=== PATIENT | female | born 1950 | race Native Hawaiian/Other Pacific Islander ===

== ENCOUNTER 2016-11-14 14:11 | Outpatient (CLI) | payer OTHER ==
[~2016-11-14 14:11] MED LIST: ALPR0.5T24 PO; AMITRIPTYLIN50 MG PO; DEXILANT60 M1 PO; HYDR10TA47 PO; METO50TA27 PO; MS CONTIN60 MG PO; PLAVIX75 MG PO; POTA20TA4 PO; PROM25TA52 PO; SIMV20TA2 PO; SUCR1TAB35 PO; TIZA4TAB5 PO; ZOLP10TA2 PO
== END 2016-11-14 21:44 | disposition home or self-care (01) ==
LOC: RAD 14:11
DX: J40 Bronchitis, not specified as acute or chronic (principal)

== ENCOUNTER 2017-01-12 08:19 | Outpatient (CLI) | payer OTHER ==
[2017-01-12 08:39] LABS: PLATELET COUNT 241 K/uL (152-353)
[2017-01-12 09:40] LABS: POTASSIUM 3.5 mmol/L (3.6-5.2); SODIUM 139 mmol/L (136-145)
== END 2017-01-12 19:43 | disposition home or self-care (01) ==
LOC: LABW 08:19
PROVIDERS: Family Medicine
DX: G89.4 Chronic pain syndrome (principal); G47.09 Other insomnia; F41.8 Other specified anxiety disorders; R73.9 Hyperglycemia, unspecified; K21.9 Gastro-esophageal reflux disease without esophagitis; I10 Essential (primary) hypertension; E55.9 Vitamin D deficiency, unspecified; R82.99 Other abnormal findings in urine
CPT/HCPCS: 36415; 80053; 80061; 81000; 82043; 82306; 82570; 83735; 84439; 84443; 84550; 85027; 87086; 87088

== ENCOUNTER 2017-03-02 08:44 | Day surgery (SDC) | payer OTHER | END 2017-03-02 12:40 | disposition home or self-care (01) | LOC: OR 08:44 | PROC: 08RJ3JZ Replacement of Right Lens with Synthetic Substitute, Percutaneous Approach (ICD-10-PCS; principal; 2017-03-02) | PROC: 08923ZZ Drainage of Right Anterior Chamber, Percutaneous Approach (ICD-10-PCS; 2017-03-02) | DX: H25.811 Combined forms of age-related cataract, right eye (principal); H52.221 Regular astigmatism, right eye | CPT/HCPCS: 66984; 66999; J3010; V2632 ==

== ENCOUNTER 2017-04-16 17:52 | Outpatient (CLI) | payer OTHER | END 2017-04-16 19:43 | disposition home or self-care (01) | LOC: LAB 17:52 | DX: N39.0 Urinary tract infection, site not specified (principal) | CPT/HCPCS: 81000; 87086; 87088 ==

== ENCOUNTER 2017-06-03 12:38 | Outpatient (CLI) | payer OTHER | END 2017-06-03 19:38 | disposition home or self-care (01) | LOC: MAMMO 12:38 | DX: R22.31 Localized swelling, mass and lump, right upper limb (principal); Z91.89 Other specified personal risk factors, not elsewhere classified; Z80.49 Family history of malignant neoplasm of other genital organs; Z80.3 Family history of malignant neoplasm of breast; Z78.0 Asymptomatic menopausal state | CPT/HCPCS: G0204-TC ==

== ENCOUNTER 2017-06-26 13:04 | Outpatient (CLI) | payer OTHER ==
[2017-06-26 13:52] LABS: PLATELET COUNT 230 K/uL (152-353)
[2017-06-26 14:48] LABS: POTASSIUM 3.6 mmol/L (3.6-5.2); SODIUM 139 mmol/L (136-145)
== END 2017-06-26 19:08 | disposition home or self-care (01) ==
LOC: LABW 13:04
PROVIDERS: Family Medicine
DX: R51 Headache (principal); F41.8 Other specified anxiety disorders; R73.9 Hyperglycemia, unspecified; G89.4 Chronic pain syndrome; I10 Essential (primary) hypertension; Z79.899 Other long term (current) drug therapy; Z51.81 Encounter for therapeutic drug level monitoring
CPT/HCPCS: 36415; 80053; 81000; 83036; 83735; 84439; 84443; 85027

== ENCOUNTER 2017-08-18 15:58 | Outpatient (CLI) | payer OTHER | END 2017-08-18 17:00 | disposition home or self-care (01) | LOC: RAD 15:58 | DX: M54.5 Low back pain (principal) ==

== ENCOUNTER 2017-08-25 09:10 | Outpatient (CLI) | payer OTHER | END 2017-08-25 18:56 | disposition home or self-care (01) | LOC: RAD 09:10 | DX: Z78.0 Asymptomatic menopausal state (principal); M54.5 Low back pain ==

== ENCOUNTER 2017-09-30 15:27 | Outpatient (CLI) | payer OTHER | END 2017-09-30 19:38 | disposition home or self-care (01) | LOC: RAD 15:27 | DX: R07.89 Other chest pain (principal); R07.81 Pleurodynia; M25.512 Pain in left shoulder ==

== ENCOUNTER 2017-11-12 12:12 | Outpatient (CLI) | payer OTHER | END 2017-11-12 22:03 | disposition home or self-care (01) | LOC: RAD 12:12 | DX: M25.511 Pain in right shoulder (principal) ==

== ENCOUNTER 2018-08-18 09:16 | Outpatient (CLI) | payer OTHER | END 2018-08-18 19:17 | disposition home or self-care (01) | LOC: RAD 09:16 → EDP 09:16 → RAD 19:17 | DX: M54.5 Low back pain (principal) ==

== ENCOUNTER 2018-08-31 09:30 | Outpatient (CLI) | payer OTHER | END 2018-08-31 21:20 | disposition home or self-care (01) | LOC: CT 09:30 | DX: M54.5 Low back pain (principal) ==

== ENCOUNTER 2019-06-01 14:32 | Outpatient (CLI) | payer OTHER | END 2019-06-01 22:19 | disposition home or self-care (01) | LOC: RAD 14:32 | DX: M54.5 Low back pain (principal) ==

== ENCOUNTER 2019-08-25 08:53 | Outpatient (CLI) | payer OTHER ==
[~2019-08-25] VITALS: Ht 124.5 cm; Wt 45.4 kg
== END 2019-08-25 23:27 | disposition home or self-care (01) ==
LOC: NM 08:53
DX: R07.89 Other chest pain (principal)
CPT/HCPCS: A9500; J2785

== ENCOUNTER 2019-09-11 08:25 | Outpatient (CLI) | payer OTHER ==
[2019-09-11 09:03] LABS: POTASSIUM 3.8 mmol/L (3.6-5.2)
[2019-09-11 09:51] LABS: PLATELET COUNT 243 K/uL (152-353)
== END 2019-09-11 19:23 | disposition home or self-care (01) ==
LOC: LABW 08:25
PROVIDERS: Family Medicine
DX: Z00.00 Encounter for general adult medical examination without abnormal findings (principal); R53.83 Other fatigue; R00.2 Palpitations; K21.9 Gastro-esophageal reflux disease without esophagitis; F41.8 Other specified anxiety disorders; E55.9 Vitamin D deficiency, unspecified; G89.4 Chronic pain syndrome; K62.5 Hemorrhage of anus and rectum; Z79.899 Other long term (current) drug therapy
CPT/HCPCS: 36415; 80053; 80061; 81000; 82306; 83735; 84439; 84443; 85027

== ENCOUNTER 2019-09-21 15:33 | Outpatient (CLI) | payer OTHER | END 2019-09-21 20:16 | disposition home or self-care (01) | LOC: RAD 15:33 | DX: M25.551 Pain in right hip (principal); N39.0 Urinary tract infection, site not specified ==

== ENCOUNTER 2020-02-09 15:04 | Outpatient (CLI) | payer OTHER | END 2020-02-09 22:03 | disposition home or self-care (01) | LOC: RAD 15:04 | DX: R07.81 Pleurodynia (principal); S29.9XXA Unspecified injury of thorax, initial encounter ==

== ENCOUNTER 2020-04-16 12:56 | Outpatient (CLI) | payer OTHER | END 2020-04-16 22:06 | disposition home or self-care (01) | LOC: CT 12:56 | DX: R91.8 Other nonspecific abnormal finding of lung field (principal); Q76.6 Other congenital malformations of ribs; R07.81 Pleurodynia | CPT/HCPCS: 36415; 82565; 84520; Q9963 ==

== ENCOUNTER 2020-10-04 15:20 | Outpatient (CLI) | payer OTHER | END 2020-10-04 19:07 | disposition home or self-care (01) | LOC: MAMMO 15:20 | PROVIDERS: ATTEND Family Medicine | DX: Z00.00 Encounter for general adult medical examination without abnormal findings (principal); Z12.31 Encounter for screening mammogram for malignant neoplasm of breast ==

== ENCOUNTER 2020-10-29 10:11 | Outpatient (CLI) | payer OTHER | END 2020-10-29 21:52 | disposition home or self-care (01) | LOC: LAB 10:11 | PROVIDERS: ATTEND Family Medicine | DX: Z20.828 Contact with and (suspected) exposure to other viral communicable diseases (principal) | CPT/HCPCS: 87635; G2023; U0003 ==

== ENCOUNTER 2020-11-14 14:08 | Outpatient (CLI) | payer OTHER | END 2020-11-14 19:46 | disposition home or self-care (01) | LOC: RAD 14:08 | PROVIDERS: ATTEND Family Medicine | DX: M54.89 Other dorsalgia (principal) ==

== ENCOUNTER 2020-12-11 16:03 | Outpatient (CLI) | payer OTHER | END 2020-12-11 22:54 | disposition home or self-care (01) | LOC: RAD 16:03 | PROVIDERS: ATTEND Family Medicine | DX: M54.89 Other dorsalgia (principal); M62.830 Muscle spasm of back; G89.4 Chronic pain syndrome ==

== ENCOUNTER 2021-02-15 08:53 | Outpatient (CLI) | payer OTHER ==
[~2021-02-15] VITALS: Ht 167.6 cm; Wt 55.3 kg
== END 2021-02-15 21:17 | disposition home or self-care (01) ==
LOC: INF 08:53
PROVIDERS: ATTEND Internal Medicine Endocrinology, Diabetes & Metabolism
DX: M81.0 Age-related osteoporosis without current pathological fracture (principal)
CPT/HCPCS: 36415; 82310; 96372; J0897

== ENCOUNTER 2021-03-04 16:26 | Emergency (ER) | payer OTHER ==
[~2021-03-04] VITALS: Ht 167.6 cm; Wt 55.3 kg
[2021-03-04 16:32] VITALS: BP 126/64; TEMP 98.5
== END 2021-03-04 18:13 | disposition home or self-care (01) ==
LOC: ED 16:26
DX: U07.1 COVID-19 (principal)
CPT/HCPCS: 87635; 99283; U0003

== ENCOUNTER 2021-08-23 13:04 | Outpatient (CLI) | payer OTHER ==
[~2021-08-23] VITALS: Ht 167.6 cm; Wt 55.3 kg
[2021-08-23 13:29] VITALS: BP 131/56; TEMP 98.6
== END 2021-08-23 19:27 | disposition home or self-care (01) ==
LOC: INF 13:04
PROVIDERS: ATTEND Internal Medicine Endocrinology, Diabetes & Metabolism
DX: M81.0 Age-related osteoporosis without current pathological fracture (principal)
CPT/HCPCS: 36415; 82310; 96372; J0897

== ENCOUNTER 2022-02-12 14:43 | Outpatient (CLI) | payer OTHER ==
[2022-02-12 14:58] LABS: PLATELET COUNT 217 K/uL (152-353)
[2022-02-12 15:15] LABS: POTASSIUM 3.8 mmol/L (3.6-5.2)
== END 2022-02-12 21:37 | disposition home or self-care (01) ==
LOC: LABW 14:43
PROVIDERS: ATTEND Physician Assistant
DX: I25.10 Atherosclerotic heart disease of native coronary artery without angina pectoris (principal); E78.49 Other hyperlipidemia; Z79.899 Other long term (current) drug therapy
CPT/HCPCS: 36415; 80053; 80061; 84443; 85027

== ENCOUNTER 2022-04-23 16:34 | Outpatient (CLI) | payer OTHER | END 2022-04-23 19:26 | disposition home or self-care (01) | LOC: RAD 16:34 | PROVIDERS: ATTEND Family Medicine | DX: M79.641 Pain in right hand (principal); Z82.61 Family history of arthritis ==

== ENCOUNTER 2022-05-23 08:08 | Outpatient (CLI) | payer OTHER ==
[~2022-05-23] VITALS: Ht 167.6 cm; Wt 53.5 kg
[2022-05-23 08:35] VITALS: BP 124/70; TEMP 98.5
--- NOTE | 2022-05-23 09:26 | NUR ---
0835 PT AMBULATED TO ROOM 1128 FOR OP INJECTION. VS OBTAINED. PT EDUCATED ON ADVERSE REACTIONS, AND FOLLOW UP WITH DR NORTON TO OBTAIN NEW ORDER IN NOVEMBER PT VERBALIZED UNDERSTANDING. 0908 PROLIA INJECTION TO RT ARM WITH NO COMPLICATIONS, COVERED WITH BANDAID 0920 INJECTION SITE WNL. NO REDNESS OR WARMTH NOTED. PT DENIES ANY COMPLAINTS AT THIS TIME
[2022-05-23 09:29] VITALS: BP 132/66; TEMP 98.6
--- NOTE | 2022-05-23 09:30 | NUR ---
PT TOLERATED INJECTION WITH NO ADVERSE REACTIONS SUSPECTED. PT AMBULATED OUT OF FACILITY TO POV IN NO DISTRESS.
== END 2022-05-23 23:40 | disposition home or self-care (01) ==
LOC: INF 08:08
PROVIDERS: ATTEND Internal Medicine
DX: M81.0 Age-related osteoporosis without current pathological fracture (principal)
CPT/HCPCS: 36415; 82310; 96372; J0897

== ENCOUNTER 2022-08-27 15:01 | Outpatient (CLI) | payer OTHER ==
[2022-08-27 15:12] LABS: PLATELET COUNT 225 K/uL (152-353)
[2022-08-27 15:38] LABS: POTASSIUM 3.9 mmol/L (3.6-5.2)
== END 2022-08-27 19:01 | disposition home or self-care (01) ==
LOC: LABW 15:01
PROVIDERS: ATTEND Nurse Practitioner Adult Health
DX: R53.81 Other malaise (principal); R53.83 Other fatigue; I25.10 Atherosclerotic heart disease of native coronary artery without angina pectoris; R06.09 Other forms of dyspnea
CPT/HCPCS: 36415; 80048; 83880; 84443; 85027

== ENCOUNTER 2022-10-20 16:40 | Outpatient (CLI) | payer OTHER ==
[2022-10-20 17:23] LABS: PLATELET COUNT 243 K/uL (152-353)
[2022-10-20 17:55] LABS: POTASSIUM 3.9 mmol/L (3.6-5.2)
== END 2022-10-20 19:00 | disposition home or self-care (01) ==
LOC: RAD 16:40
PROVIDERS: ATTEND Family Medicine
DX: R06.02 Shortness of breath (principal); R53.1 Weakness
CPT/HCPCS: 36415; 80053; 81002; 82550; 83735; 84100; 84439; 84443; 85027; 85379; 85652

== ENCOUNTER 2022-11-24 13:48 | Outpatient (CLI) | payer OTHER ==
[~2022-11-24] VITALS: Ht 167.6 cm; Wt 56.2 kg
[2022-11-24 14:02] VITALS: BP 122/64; TEMP 98.3
[2022-11-24 15:00] VITALS: BP 120/61; TEMP 98
== END 2022-11-24 19:26 | disposition home or self-care (01) ==
LOC: INF 13:48
PROVIDERS: ATTEND Internal Medicine
DX: M81.0 Age-related osteoporosis without current pathological fracture (principal)
CPT/HCPCS: 36415; 82310; 96372; J0897

== ENCOUNTER 2023-02-03 15:35 | Outpatient (CLI) | payer OTHER | END 2023-02-03 22:28 | disposition home or self-care (01) | LOC: RAD 15:35 | PROVIDERS: ATTEND Family Medicine | DX: M54.59 Other low back pain (principal) ==

== ENCOUNTER 2023-04-13 11:03 | Outpatient (CLI) | payer OTHER ==
[2023-04-13 11:38] LABS: PLATELET COUNT 209 K/uL (152-353)
[2023-04-13 12:10] LABS: POTASSIUM 4.6 mmol/L (3.6-5.2)
== END 2023-04-13 20:02 | disposition home or self-care (01) ==
LOC: RAD 11:03
PROVIDERS: ATTEND Family Medicine
DX: M25.512 Pain in left shoulder (principal); R07.81 Pleurodynia; G89.4 Chronic pain syndrome; R53.83 Other fatigue; K21.9 Gastro-esophageal reflux disease without esophagitis; R03.0 Elevated blood-pressure reading, without diagnosis of hypertension; F41.8 Other specified anxiety disorders; G47.00 Insomnia, unspecified; E55.9 Vitamin D deficiency, unspecified; R73.9 Hyperglycemia, unspecified; Z79.899 Other long term (current) drug therapy; E78.2 Mixed hyperlipidemia
CPT/HCPCS: 36415; 80053; 80061; 81002; 82306; 83036; 83735; 84439; 84443; 84550; 85027

== ENCOUNTER 2023-05-29 07:57 | Outpatient (CLI) | payer OTHER ==
[~2023-05-29] VITALS: Ht 165.1 cm; Wt 65.8 kg
[2023-05-29 08:12] VITALS: BP 107/52; TEMP 97.6
== END 2023-05-29 19:39 | disposition home or self-care (01) ==
LOC: INF 07:57
PROVIDERS: ATTEND Internal Medicine
DX: M80.0AXA Age-related osteoporosis with current pathological fracture, other site, initial encounter for fracture (principal)
CPT/HCPCS: 36415; 82040; 82310; 96372; J0897